=== PATIENT | male | born 1995 | race Caucasian/White ===

== ENCOUNTER 2024-02-09 16:08 | Outpatient (CLI) | payer OTHER, SELFPAY ==
--- NOTE | ~2024-02-09 | XR_ITS ---
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 COMPARISON: None available. FINDINGS: Normal mineralization. No fracture or dislocation. No lytic or blastic lesion. Joint space s are maintained. Olecranon enthesopathy. No erosion or periosteal change. Soft tissues within normal limits. IMPRESSION: No acute osseous finding in the right elbow. Reviewed, dictated and finalized at location K.
== END 2024-02-09 16:09 ==
PROVIDERS: PCP Family Medicine; Visit Provider Family Medicine
DX: M25.521 Pain in right elbow (principal)
CPT/HCPCS: 73080

== ENCOUNTER 2024-07-10 09:56 | Emergency (ER) | payer OTHER, SELFPAY ==
--- NOTE | 2024-07-10 09:59 | ED.HA ---
HPI - Headache General Chief Complaint: Headache Stated Complaint: migraine Time Seen by Provider: 07/10/24 09:57 Source: patient Mode of arrival: ambulatory Limitations: no limitations History of Present Illness HPI Narrative: Steve is a 29-year-old female patient presenting to the clinic today with complaints of migraine headache that started this morning. He reports he did take a rizatriptan 1 hour ago and that did not help with symptoms. Is having some photosensitivity and nausea. No vomiting. Reports the pain is a 4/10 currently and throbbing and it involves this entire head. He denies any visual changes, dizziness, or unsteady gait. Related Data Allergies Allergy/AdvReac Type Severity Reaction Status Date / Time No Known Drug Allergies Allergy Unknown Unknown Verified 07/10/24 10:09 Review of Systems Review of Systems: Pertinent positives per HPI. Patient denies any fever, chills, rash, visual changes, dizziness, cough, shortness of breath, chest pain, palpitations, nausea, vomiting, diarrhea, constipation, abdominal pain, or any urinary issues. FOR[facility]LY [facility] Past Medical History Medical History Lateral epicondylitis of right elbow Right elbow pain IFG (impaired fasting glucose) Chronic GERD Depression Migraine, unspecified, not intractable, without status migrainosus Surgical History Surgical History History of hand surgery History of mandibular surgery Family History Family History Mother Diabetes mellitus Hypertension Social History Social History Social History: caffeine use Smoking status: Current some day smoker Tobacco type: cigars Second hand tobacco smoke exposure: Yes Smoking end date: 07/27/09 Alcohol intake: current Drinks per week: 4 Substance use: never Substance use type: does not use Living arrangements: with family Occupation/Education: occupation 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 There is no relevant family history pertinent to the patient complaint. Exam Narrative: General: Well-developed, well nourished, in no apparent distress Head: Normocephalic, atraumatic Eyes: Pupils equally round and reactive to light bilaterally, EOM intact, sclera and conjunctive clear, no discharge, lids normal Ears: TMs intact and clear, ear canals clear, no drainage, grossly hearing normal. Nose: Nares patent, no discharge, no inflammation, no sinus tenderness. Mouth: Oropharynx without lesions or masses, good dentition, MMM. Tongue midline, even rise and fall of uvula Neck: Supple, trachea midline, no enlargement of anterior or posterior cervical nodes, no thyroid masses or goiter palpable. Cardio: Regular rate and rhythm, s1 and s2 normal, no murmur appreciated. Resp: Clear to auscultation bilaterally anteriorly and posteriorly, no rhonchi, rales, wheezing or rubs Musculoskeletal: No deformity, non-tender to palpation, grossly normal range of motion, muscle strength strong and equal, peripheral pulse strong, no edema, no cyanosis, normal gait and station Neuro: Alert and oriented x4 with normal speech, no focal deficits, cranial nerves I through XII intact, muscle strength 5 out of 5, sensation intact bilaterally Course Course Emergency Course: Portions of this record may have been created with voice recognition software. Level of Care: Express Care Visit Vital Signs Vital signs: Vital Signs Temperature 36.5 C 07/10/24 10:04 Pulse Rate 64 07/10/24 10:04 Respiratory Rate 16 07/10/24 10:04 Blood Pressure 144/87 H 07/10/24 10:04 Pulse Oximetry 98 07/10/24 10:04 Oxygen Delivery Room Air 07/10/24 10:04 Temperature 36.5 C 07/10/24 10:04 Pulse Rate 64 07/10/24 10:04 Respiratory Rate 16 07/10/24 10:04 Blood Pressure 144/87 H 07/10/24 10:04 Pulse Oximetry 98 07/10/24 10:04 Oxygen Delivery Room Air 07/10/24 10:04 Vital signs reviewed MDM - Headache MDM Narrative Medical decision making narrative: At the time of visit patient is resting comfortably on the exam table. Patient appears to be nontoxic. Medications: Toradol 60 mg, Benadryl 50 mg, and Zofran 4 mg ODT given in the clinic today Plan: Patient is neurologically intact. I suspect patient has acute migraine. Took a dose of his rizatriptan and this morning without relief. Toradol, Benadryl, and Zofran was given in the clinic today. Supportive measures were discussed with the patient and they voiced understanding discharge instructions and agrees to treatment plan. Return precautions reviewed Differential Diagnosis Differential diagnosis: Likely migraine, tension headache, subarachnoid hemorrhage, headache, meningitis and sinusitis Discharge Plan Discharge Clinical Impression: Migraine, unspecified, not intractable, without status migrainosus Qualifiers: Migraine type: unspecified Qualified Code(s): G43.909 - Migraine, unspecified, not intractable, without status migrainosus Patient Disposition: Home, Self-Care Condition: Stable Instructions: Antibiotic Form, Migraine Headache (ED) Additional Instructions: Toradol 60 mg IM, Benadryl 50 mg IM, and Zofran 4 mg ODT given in the clinic today Go home and rest in a cool dark place May apply cool compress to the affected area to help alleviate pain Increase fluids and stay well hydrated Continue current medications as prescribed May take Tylenol/Motrin as needed for pain in addition to the rizatriptan Follow-up with your primary care doctor this week if symptoms persist Patient Language: Hungarian Prescriptions: No Action omeprazole 40 mg capsule,delayed release(DR/EC) 40 mg PO DAILY Qty: 90 2RF rizatriptan 10 mg tablet,disintegrating See Rx Instructions PO .COMPLEX Qty: 30 3RF Rx Instructions: take 1 tab at onset of headache; if no relief may repeat 1 tab after at least 2 hrs; max = 2 tabs/24 hr PO Follow-up/Referrals: Jalil Armas MD [Primary Care Provider] - Time of Disposition: 10:22 Quality NIHSS Nursing Documentation ED NIHSS nursing documentation: reviewed/agree
[2024-07-10 10:04] VITALS: BP 144/87; PULSE 64; RESP 16; TEMP 36.5; O2SAT 98
[2024-07-10] MEDS: ONDANSETRON HCL ODT 4 MG TABLET SUBLINGUAL (10:21)
[2024-07-10] MEDS: diphenhydrAMINE HCl INJ 50 MG/ML VIAL IM (10:21)
[2024-07-10] MEDS: KETOROLAC (*BKC) 60 MG/2 ML VIAL IM (10:22)
== END 2024-07-10 10:36 | disposition home or self-care (01) ==
PROVIDERS: Emergency Provider Nurse Practitioner Family; PCP Family Medicine
DX: G43.909 Migraine, unspecified, not intractable, without status migrainosus (principal); Z87.891 Personal history of nicotine dependence; K21.9 Gastro-esophageal reflux disease without esophagitis; R73.01 Impaired fasting glucose
CPT/HCPCS: 96372; 99214; A9270; G0463; J1200; J1885

== ENCOUNTER 2024-12-23 00:47 | Day surgery (SDC) | payer OTHER, SELFPAY ==
[2024-12-14 11:11] VITALS: BMI 38.4
--- NOTE | 2024-12-14 11:20 | PC.NURSE ---
Report to the Outpatient Waiting Room, entrance under the green pavilion located off [facility], at time ___1100am____ on date _12/23/24 . Planned Procedure Time: _100pm .? Time changes happen often and if your time is changed the preop area will call you the afternoon before. - You and your visitor will be asked to self-screen and do not enter if you have any COVID symptoms. Please call surgeon if you need to reschedule. - A mask is optional within the hospital at this time. Patients may have clear liquids (water, carbonated beverages, clear teas, apple juice) until 3 hours prior to surgery with a maximum of 20 ounces. - No food from midnight until time of surgery and no smoking, or chewing tobacco (or any form of nicotine). No chewing gum, candy or mints. ( 1000am) Take only the following medications with a SIP of water on the morning of surgery: None DO NOT STOP ANY OF YOUR OTHER PRESCRIPTION MEDICATIONS PRIOR TO SURGERY EXCEPT THE FOLLOWING Hold all vitamins and supplements for 3 days per anesthesiologist. Medications to discontinue per physician NOne Date to take last dose None Please no make-up, nail burmese, hairspray, perfume, deodorant, or body powder the day of surgery.? No jewelry (including any body piercings) or valuables the day of surgery, leave them at home.? Please take a shower or bath the night before, or the morning of, surgery with an antibacterial soap.? Wear comfortable, loose fitting clothing.? - Jewelry must be removed prior to entering the operating room.? Rings and piercings that are not removed may be cut off. - The hospital will not accept responsibility for valuables.? - Please leave all valuables, including medications, at home the day of surgery. If you are going home after surgery, a licensed route driver salesperson must drive you home.? - NO public transportation without another adult if you receive anesthesia. - We recommend that an adult stay with you for 24 hours following discharge. - We also recommend that you do not drive, make important decision, drink alcoholic beverages, or take any drugs that were not prescribed by your health care provider for at least 24 hours after your discharge time. Follow any additional instructions given to you from your surgeon. Telephone instructions given to ___Patient and asked if any additional questions and then verbalized understanding. Patient advised to call surgeon office or pre surgery nurse liaison [phone] if any additional questions.
[2024-12-23] VITALS (10 sets, daily range): BP systolic 104–140; BP diastolic 51–86; PULSE 45–71; RESP 12–16; TEMP 36.2–36.9; O2SAT 96–100; BMI 36.7
--- OUTSIDE RECORDS SUMMARY | 2024-12-23 00:50 | XMS_ITS | Referral Summary ---
Author Organization [address] Address [address] [place] [id number] Care Team Providers Care Automotive Diagnostic Technician Name Role Phone Jalil Armas MD Primary Care Provider Allergies No known active allergies Medications omeprazole (PriLOSEC) 40 mg capsule 08/22/2021 Active rizatriptan CLOTH COLORS EXAMINER (MAXALT-CLOTH COLORS EXAMINER) 10 mg disintegrating tablet 11/09/2023 Active Active Problems No known active problems Social History Tobacco Use Types Packs/Day Years Used Date Smoking Tobacco: Some Days Cigars Personal Safety Answer Date Recorded Getting School Help Needed Not on file 09/15 Sex and Gender Information Value Date Recorded Sex Assigned at Not on file 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 Gender Identity Not on file Sexual Orientation Not on file Last Filed Vital Signs Vital Sign Reading Time Taken Comments Blood Pressure 140/90 01/09/2024 7:35 PM CDT Pulse 68 01/09/2024 6:57 PM CDT Temperature 36.4 C (97.5 F) 01/09/2024 6:57 PM CDT Respiratory Rate 20 01/09/2024 6:57 PM CDT Oxygen Saturation 98% 01/09/2024 6:57 PM CDT Inhaled Oxygen Concentration - - Weight 127 kg (280 lb) 01/09/2024 6:57 PM CDT Height 185.4 cm (6' 1) 01/09/2024 6:57 PM CDT Body Mass Index 36.94 01/09/2024 6:57 PM CDT Plan of Treatment Not on file Insurance R [facility] Care Teams Automotive Diagnostic Technician Relationship Specialty Start Date End Date Jalil Armas MD [address] [facility] [address] [place] [address] PCP - General Family Medicine 09/08/21
--- OUTSIDE RECORDS SUMMARY | 2024-12-23 00:50 | XMS_ITS | Clinical Summary ---
Author Organization [facility] [address] [place] Address [address] [place] [id number] Care Team Providers Care Hospital Insurance Representative Name Role Phone Jalil Armas MD Primary Care Provider Allergies No known active allergies Medications omeprazole (PriLOSEC) 40 mg capsule 08/22/2021 Active rizatriptan BINGO USHER (MAXALT-BINGO USHER) 10 mg disintegrating tablet 11/09/2023 Active Active Problems No known active problems Surgical History Surgery Date Site/Laterality Comments MANDIBLE SURGERY HAND SURGERY Social History Tobacco Use Types Packs/Day Years Used Date Smoking Tobacco: Some Days Cigars Personal Safety Answer Date Recorded Getting School Help Needed Not on file 09/15 Sex and Gender Information Value Date Recorded Sex Assigned at Not on file 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 Gender Identity Not on file Sexual Orientation Not on file Obstetrics History Last Filed Vital Signs Vital Sign Reading [...] 01/09/2024 6:57 PM CDT Plan of Treatment Health Maintenance Due Date Last Done Comments Depression Screening 1994 Hepatitis C Screening 1994 Varicella Vaccines (1 of 2 - 13+ 2-dose series) 2007 Regular Well Visit/Exam 18-64 2012 Pneumococcal vaccine <65 (1 of 2 - PCV) 2013 Influenza Vaccine (Season Ended) 2025 05/18/20 15 DTaP/Tdap/Td Vaccine (3 - Td or Tdap) 04/06/2025 04/06/2015, 03/27/2015 Hepatitis B Screening Completed 05/28/2015, 015 HPV Vaccines Completed 12/22/2017, 11/24, 06/03/2017, Additional history exists Insurance [facility] H[facility]/PPO Address: [address] [address] Care Teams Hospital Insurance Representative Relationship Specialty Start Date End Date Jalil Armas MD [address] [facility] [address] [place] [address] PCP - General Family Medicine 09/08/21
--- OUTSIDE RECORDS SUMMARY | 2024-12-23 00:50 | XMS_ITS | Continuity of Care Document ---
Author Organization [facility] Address [address] [place] [address] Phone Care Team Providers Care Information Systems Administrator Name Role Phone Points Pati ROCHA Unavailable Unavailable Allergies, Adverse Reactions, Alerts Substance Reaction Status Criticality No Known Allergies Active No Inform ation Medications Medication Instructions Dosage Effective Dates (start - stop) Status Comments omeprazole 10 mg capsule,delayed release take 2 capsule by oral route every day before a meal 20 MG - Active rizatriptan 10 mg tablet take 1 tablet by oral route once, may repeat at 2 hour intervals; do not exceed 30 mg in 24 hours 10 MG - Active Procedures Procedure Date OFFICE/OUTPATIENT VISIT, NEW [place] Ketorolac - Per 15mg THER/PROPH/DIAG INJ, SC/IM Advance Directives Directive Yes / No Effective Date File Name No Information Encounters Encounter Description Practice Location Reason(s) For Visit Diagnoses Date Provider Providers Copied on Encounter OFFICE/OUTPATI ENT VISIT, NEW [facility], [address], [place], [id number], tel:[phone] [facility] migraine (chief complaint) Migraine Abhishek Krueger. [address] [place], [address], [place]. tel:[phone] Referring Provider: Pati Weiss, [address] [place], [address]. tel:[phone] Family History Family Member Type Diagnosis Age At Onset Problem Family history of hypertensi on Problem Family history of Diabetes jose angel morales Payers Payer name Insurance type Covered alliance party ID Coco allen(s) Yext [id number] Social History Type Description Quantity Date Captured Comments Alcohol Use Details No Caffeine Use Details Unknown Tobacco Use Status Current non-smoker Smoking Status Never smoker Non-Smoking Tobacco Use Details : No Details Available : No Details Available Sex Male Vital Signs Date / Time: Height Weight BMI Pulse Rate Blood Pressure Temperature Respiratory Rate Body Surface Area Head Circumference Head Circ. Percentile Wt./Gen. Percentile BMI percentile Pulse Ox Inhaled Ox 10:09 AM 74.00 in 126.008 kg (277.80 lbs) 35.6 7 kg/m eter (2) 58 /min 130/88 mm[Hg] 96.90 F 16 /min 98 % Chief Complaint And Reason For Visit From encounter dated '05/04/2022 09:45'. migraine (chief complaint). Description: Onset: 3hours. The severity of the problem is mild. Pain scale: 5/10. The problem has worsened. The symptoms are constant. Locations affected include entire head. Headache timing includes upon wakening. Symptoms are associated with hx of migraines 3-4 times a mt. Aggravating factors include bright lights and noise. Symptoms are relieved by prescription meds and Rizotriptan. Associated symptoms include nausea, phonophobia and photophobia. Pertinent negatives include blurred vision, fever, loss of consciousness, vision loss left and vision loss right. Reason For Referral Reason For Referral No Information History Of Present Illness Encounter Date Complaint History Of Prese nt Illness migraine Onset: 3hours. T he severity of the problem is mild. Pain scale: 5/10. The problem has worsened. The symptoms are constant. Locations affected include entire head. Headache timing includes upon wakening. Symptoms are associated with hx of migraines 3-4 times a mt. Aggravating factors include bright lights and noise. Symptoms are relieved by prescription meds and Rizotriptan. Associated symptoms include nausea, phonophobia and photophobia. Pertinent negatives include blurred vision, fever, loss of consciousness, vision loss left and vision loss right. Functional Status Date Functional Assessmen t Pain Score 5/10 Instructions Date Instruction Additional Infor christopher Migraine- Toradol 60 mg IM, patient tolerated well- Rest, fluids- RTC if symptoms don't improve or worsen- patient in agreement with plan Related to Migraine Assessments Type Assessment Date assessment Migraine impression 26 yo male here with c/o migraine for past 3 hours. Has history of migraines 3-4 times/month, usually takes rizatriptan with resolution of migraine. Has occasional migraine resistant to medication and requires toradol IM. Denies dizziness, chest pain, vomiting, changes in vision, or balance/ gait. Tolerating PO. Reports this migraine is exactly like his normal ones. Currently has PCP treating him for these migraines Mental Status Date Cognitive Assessment Orientation - [place] ed to time, place, person, situation. Patient Care Teams Name Effective Dates (start - stop) Status Members No Information
--- OUTSIDE RECORDS SUMMARY | 2024-12-23 00:50 | XMS_ITS | Patient Health Record ---
Author Organization [facility] Address [address] [facility] [address] [place] [address] Care Team Providers Care Molder Setter Name Role Phone Jalil Armas MD Primary Care Provider UnavailBerny Wolf Unavailable [phone] Raul Marie PA-C Unavailable Unavailable Pb Berry Unavailable [phone] Allergies No Known Allergies Results Component Value Reference Range Notes UDT Reviewed date:09/26/2024 04:55:30 PM Interpretation: Performing Lab: Notes/Report: THC n 0 - 50 ng/ml Cocaine n 0 - 300 ng/ml Amphetamine n 0 - 1000 ng/ml Buprenorphine (BUP) n 0 - 10 ng/ml Secobarbital (Bar) n 0 - 300 ng/ml Oxazepam (BZO) n 0 - 300 ng/ml 9-mvyqplpvlr-9,0-bzndjgbb-8,3-diphenylpyrrolidine (ROWAN P) n 0 - 300 ng/ml Methylenedioxymethamphetamine (MDMA) n 0 - 500 ng/ml Morphine (MOP 300/[id number]) n 0 - 300 ng/ml Methadone (MTD) n 0 - 300 ng/ml Phencyclidine (PCP) n 0 - 25 ng/ml Nortriptyline (TCA) n 0 - 1000 ng/ml Oxycodone n 0 - 300 ng/ml x n 0 - 300 ng/ml Reason For Referral No Information Medications Medication SIG (Take, Route, Frequency, Duration) Notes Start Date End Date Status Omeprazole 40 MG Oral 03/21/2019 Ac tive Escitalopram Oxalate 10 MG Oral 03/21/2019 Not-Taking Social History Tobacco Use: Social History Observation Description Date Details (start date - stop date) Unknown Sex Assigned At : Social History Observation Description Sex Assigned At Male Tobacco Control (Standard) Question Answer Notes Tobacco use: Uses tobacco in other forms AUDIT-C (Standard) Question Answer Notes Points 4 Interpretation Positive Did you have a drink contain ing alcohol in the past year? Yes How often did you have six o r more drinks on one occasion in the past year? Less than monthly (1 point) How many drinks did you have on a typical day when you were drinking in the past year? 3 or 4 drinks (1 point) How often did you have a dri nk containing alcohol in the past year? 2 to 4 times a month (2 points) Problems Problem Type SNOMED Code ICD Code Onset Dates Problem Status W/U Status Risk Notes Problem Attention deficit hyperactivity disorder, predominantly inattentive type (disorder) (59979817) Attention and concentration deficit (R41.840) Active confirmed Problem Attention deficit hyperactivity disorder (822048966) Attention deficit hyperactivity disorder (ADHD), combined type (F90.2) Active confirmed Vital Signs Heart Rate 93 /min 10/06/2024 Height-cm 182.88 cm 10/06/2024 Blood pressure diastolic 92 mm Hg 10/06/2024 Weight-kg 133.81 kg 10/06/2024 Height 72.00 in 10/06/2024 Blood pressure systolic 147 mm Hg 10/06/2024 Weight 295.0 lbs 10/06/2024 BMI 40 kg/m2 10/06/2024 Encounters Encounter Location Date Provider Diagnosis [employer] [facility] [address] [facility] [address] [place] [address] 09/08/2024 Berny Kenny Attention and concentration deficit R41.840 [facility] [place] [address] [facility] [address] [place] [address] 09/26/2024 Pb Berry Lack of concentratio n R41.840 [facility] [place] [address] [facility] [address] [place] [address] 10/06/2024 Berny Kenny Attention deficit hyperactivity disorder (ADHD), combined type F90.2 ; Encounter for screening for cardiovascular disorders Z13.6 ; Dietary counseling and surveillance Z71.3 and Encounter for screening for depression Z13.31 [place] [address] [place] [address] 10/14/2024 [facility] [address] [place] [place] [address] 10/06/2024 [place] [address] [place] [address] 10/13/2024 [facility] [address] [place] [address] 10/13/2024 [facility] [address] [place] [address] 10/18/2024 [facility] [address] [facility] [address] [place] [address] 10/26/2024 [facility] [address] [facility] [address] [place] [address] 10/28/2024 [place] [address] [facility] [address] [place] [address] 10/28/2024 [facility], [place] [address] [facility] [address] [place] [address] 11/10/2024 [facility] [address] [facility] [address] [place] [address] 11/18/2024 Berny Kenny Assessments Encounter Date Diagnosis (ICD Code) Assessment Notes Treatment Notes Treatment Clinical Notes Section Notes 09/08/2024 Attention and concentration deficit (ICD-10 - R41.840) 10/06/2024 Attention deficit hyperactivity disorder (ADHD), combined type (ICD-10 - F90.2) Electronic Prior Authorization was requested for Methylphenidate HCl ER (OSM) 36 MG Tablet Extended Release. Provider can order medication once approval received. 09/26/2024 Lack of concentration (ICD-10 - R41.840) The cognitive assessment results for the 29-year-old male indicate the following carr points: ADHD Screening (ASRS Questionnaire) The ASRS questionnaire is indicative of ADHD. Part A (core ADHD symptoms): 5 (threshold >3, meaning ADHD symptoms are present). Part B (supporting symptoms): 10. Cognitive Performance The cognitive assessment evaluates various executive functions: Planning (Spatial Planning) Score: 34 (above the threshold of >12). 87th percentile, indicating strong planning abilities. Spatial Working Memory (Token Search) Score: 6.33 (above the threshold of >4.75). 64th percentile, suggesting an ksqlpgn-kh-pybsmo working memory. Attention (Feature Match) Errors: 1 (within the typical range, 38th percentile). Reaction time: 2708ms (slower than typical, 37th percentile). Impulsivity: Neither faster nor less accurate. Response Inhibition (Double Trouble) Errors: 2 (within the typical range, 30th percentile). Interference ratio for errors: 2 (within range, 38th percentile). Reaction time interference: 1.23 (within range, 56th percentile). Overall reaction time: 1876ms (slower than expected, 25th percentile). Reaction time variability: 448ms (within range, 15th percentile). Sustained Attention to Response Task (SART) Commission errors: 2 (low, 4th percentile). Omission errors: 1 (within range, 15th percentile). Reaction time variability: 81ms (low, 10th percentile). Slowing after errors: 2ms (within range, 46th percentile). [employer] Strong planning abilities (87th percentile). Average working memory (64th percentile). Slightly slower reaction times in attention and response inhibition tasks. Minimal impulsivity errors, suggesting good self-regulation. Some variability in attention performance, but not severe deficits. Conclusion The ASRS results indicate ADHD is likely, but the cognitive markers show relatively intact executive function. The slower reaction times may contribute to attention difficulties, and mild variability in attention suggests possible distractibility. However, strong planning and working memory scores suggest compensatory strengths. 10/06/2024 Encounter for screening for cardiovascular disorders (ICD-10 - Z13.6) 10/06/2024 Dietary counseling and surveillance (ICD-10 - Z71.3) 10/06/2024 Encounter for screening for depression (ICD-10 - Z13.31) 09/08/2024 Other Learning About Depression Screening material was printed 1. ADHD (Attention Deficit Hyperactivity Disorder): - Patient reports a history of ADHD in childhood, treated with Concerta. He stopped medication when joining the . - Currently experiences difficulty focusing, impulsivity, and restlessness, affecting work and personal life. Plan: - Schedule the patient for an ADHD test. - Schedule a follow-up appointment to discuss medication options after test results are available. - Consider stimulant medications (e.g., Concerta, Adderall, Vivient) and non-stimulant medications (e.g., atomoxetine, Qelbree). 2. Sleep disturbance (snoring): - Patient reports snoring, affecting his 's sleep quality. - Currently participating in a sleep challenge. Plan: - Encourage the patient to continue with the sleep challenge. - Monitor for any improvements in snoring. - Consider referral to a sleep specialist if the issue persists. 3. Caffeine intake: - Patient consumes 4-5 cups of coffee daily, potentially contributing to ADHD symptoms. Plan: - Recommend reducing caffeine intake and replacing some coffee consumption with water. - Monitor for any changes in ADHD symptoms. 4. Alcohol use (binge drinking): - Patient reports occasional binge drinking during work trips. Plan: - Encourage the patient to monitor his alcohol consumption. - Consider strategies to reduce binge drinking during work trips. 5. Anxiety (history): - Patient reports a history of anxiety related to transitioning out of the . - No current anxiety symptoms. Plan: - Continue to monitor for any signs of anxiety during follow-up appointments. 6. Depression (history): - Patient denies any history of depression, suicidal thoughts, or suicide attempts. Plan: - Continue to monitor for any signs of depression during follow-up appointments. 7. Family history of ADHD: - Patient denies any family history of ADHD. Plan: - No specific intervention needed at this time. 10/06/2024 Other BOXED WARNINGCaution with history of drug dependence or alcoholism. Marked tolerance and psychological dependence may result from chronic abusive use. Sharad psychotic episodes may occur, especially with parenteral abuse. Careful supervision required for withdrawal from abusive use to avoid severe depression. Withdrawal following chronic use may unmask symptoms of underlying disorder that may require follow-up 1. Attention-Deficit /Hyperactivity Disorder (ADHD): - Patient underwent ADHD testing on September 26, with cognitive assessment results showing: * Strong planning abilities (87th percentile) * Average to strong spatial working memory (64th percentile) * Slightly slower reaction times in attention feature match (37th percentile) and response inhibition (25th percentile) * Sustained attention to response task showed low reaction time and commission errors - Patient reports increased problems at work with attention, concentration, and distractibility - History of positive response to Concerta (methylphenidate ER) in the past - No overt severe ADHD symptoms, but patient has good compensation skills - Sleep appears normal based on recent sleep study - No reported anxiety or depression Plan: - Start methylphenidate ER 20 mg PO every morning - Patient informed about potential side effects: decreased appetite, anxiety, irritability, anger, increased heart rate, or blood pressure - Advised to take medication in the morning to avoid sleep interference - Prescription to be sent to the pharmacy Follow-up: - Schedule a follow-up appointment in one month Plan Of Treatment Future Test Test Name Order Date ADHD Testing 09/08/2024 Insurance Providers Payer Name Payer Address Payer Phone Subscriber Number Group Number Insured Name Patient Relationship to Insured Coverage Start Date Coverage End Date [facility] [address] [address] [place] [address] [id number] DHAVAL MOREIRA Self - patient is the insured Medical (General) History Medical History History ICD Code Problems: Generalized anxiety disorder Mild recurrent major depression , abdominal aortic aneurysm: No atrial fibrillation: No chronic fatigue syndrome: No essential tremor: No hyperlipidemia: No hypertension: No Parkinson's disease: No restless leg syndrome: No stroke: No subdural hematoma: No type 1 diabetes mellitus: No type 2 diabetes mellitus: No vitamin B12 deficiency: No vitamin D deficiency: No Surgical History Surgery Date(Month/Year) Operation for bone injury of phalanges o f hand ([id number]) Operation on mandible ([id number])
--- NOTE | 2024-12-23 11:27 | WPDHPUPDATE1 ---
History and Physical Update Update Date/Time: 12/23/24 11:27 History and Physical has been reviewed, including an updated exam of the patient. There are NO changes in the patient's condition. Risks, benefits, and alternatives have been discussed and questions answered. Patient agrees to proceed with procedure.
[2024-12-23] MEDS: ACETAMINOPHEN 500 MG TABLET 1000 MG PO (11:30)
--- NOTE | 2024-12-23 12:10 | WPDANESEPPF ---
Anes - Initial Pre Proc Eval Procedure: Operation Date: 12/23/24 13:00 Proposed Procedures p Bilateral Inferior Turbinate Reduction with Outfracture - Rashad Reina MD s Endoscopic Assisted Septoplasty - Rashad Reina MD Date/Time: 12/23/24 12:10 Surgeon: Rashad Reina MD Pre Op Diagnosis: chronic sinusitis, PEDRO PABLO, deviated septum, Patient Data Age: 29 Gender: M Height: 1.85 m Weight: 126.4 kg Last Vital Signs Temp 36.9 C 12/23/24 11:52 Pulse 58 L 12/23/24 11:52 BP 140/79 12/23/24 11:52 Pulse Ox 99 12/23/24 11:52 O2 Del Method Room Air 12/23/24 11:52 Allergies Allergy/AdvReac Type Severity Reaction Status Date / Time No Known Drug Allergies Allergy Unknown Unknown Verified 12/23/24 11:50 Home Medications ?Medication ?Instructions ?Recorded ?Confirmed ?Type rizatriptan 10 mg disintegrating See Rx Instructions PO .COMPLEX 11/09/23 12/15/24 Rx tablet #30 tabs omeprazole 40 mg capsule,delayed 40 mg PO DAILY #90 caps 08/08/24 12/15/24 Rx release dextroamphetamine-amphetamine ER 15 mg PO QAM #30 caps 11/28/24 12/15/24 Rx 15 mg 24hr capsule,extend release (Adderall XR) fluticasone propionate 50 2 spray intranasal Q12H 12/01/24 12/15/24 History mcg/actuation nasal spray,suspension fluticasone propionate 50 2 spray intranasal BID #16 mL 12/01/24 12/15/24 Rx mcg/actuation nasal spray,suspension (Flonase Allergy Relief) Patient hx anesthesia problems: none Family hx anesthesia problems: none Results Review: All pre-operative results and documents have been reviewed as part of the pre-operative evaluation. [facility] Past Medical History Medical History (Updated 12/23/24 @ 08:12 by Navin Hou DO) PEDRO PABLO (obstructive sleep apnea) Lateral epicondylitis of right elbow Right elbow pain IFG (impaired fasting glucose) Chronic GERD Depression Migraine, unspecified, not intractable, without status migrainosus Surgical History Surgical History History of hand surgery History of mandibular surgery Family History Family History Mother Diabetes mellitus Hypertension Social History Social History Social History: caffeine use Smoking status: Current some day smoker Tobacco type: cigars Second hand tobacco smoke exposure: Yes Smoking end date: 07/27/09 Alcohol intake: current Drinks per week: 3 Substance use: never Substance use type: does not use Living arrangements: with family Additional living arrangements comments: Occupation/Education: occupation 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- [email or web address] Gender identity (if verbalized by the patient): Male Sexual Orientation (if Verbalized by the Patient): Straight or Heterosexual Spiritual care concerns: No Anes - Eval Final PreProcedure Day of Procedure 12/23/24 12:10 Patient weight: obese Heart: regular rate and rhythm Lungs: clear to auscultation Airway: Mallampati scale class III Neurological: alert and oriented Last oral intake: >/= 8 hours ASA classification: III Emergent: no Anesthetic plan: proceed Anesthesia type and monitoring: general ETT and standard monitoring Results Review: All pre-operative results and documents have been reviewed as part of the pre-operative evaluation. Informed Consent: The patient's anesthetic plan and its attendant risks and benefits were discussed with the patient/family/POA. Questions were solicited and answers provided to the satisfaction of the patient/family/POA.
[2024-12-23] MEDS: LACTATED RINGERS 1,000 ML 30 ML IV CONT ×2 (12:37→13:59)
[2024-12-23] MEDS: ceFAZolin 3 GM/D5W 100 ML 100 ML IVPB (13:08)
[2024-12-23] MEDS: OXYMETAZOLINE HCL 0.05% NAS 15 ML BTL (*BKC) 1 SPRAY XX (13:30)
--- NOTE | 2024-12-23 14:10 | W.PM.PROC2 ---
Procedure Note - Detailed Date of Procedure 12/23/24 Pre-op Diagnosis chronic sinusitis, PEDRO PABLO, deviated septum, Post-op Diagnosis Same Procedure Performed Endoscopic assisted septoplasty inferior turbinate reduction with outfracture bilaterally Surgeon Rashad Reina MD Anesthesia General Indications See above Findings Severely deviated left nasal septum very large turbinates no complications Description of Procedure Patient identified consent verified the preop holding area. Patient brought to the operating. Time-out performed. General anesthesia induced endotracheal tube secured. Patient prepped draped position procedure confirmed 2nd time-out performed. Total 15 cc 1% lidocaine with 1 100,000 parts epinephrine injected into the bilateral nasal septum and inferior turbinates anteriorly. [place] incision made left side the entire procedure was done with a 0 degree endoscope. [place] incision made left-sided sparing a good L strut left nasal septal flap elevated a 7 German suction some tears over spur no concomitant tear on the right side cartilage crossover using an osteotome right nasal septal flap elevated L strut was kept intact deviated septum removed [place] forceps Aric forceps and osteotome. Septum then washed out Hitesh incision closed with 5 interrupted 5 0 fast gut sutures. Turbinates stab anteriorly using a 15 blade and reduced in the submucosal plane using a 2.5 mm Aguila microdebrider. They were then outfractured. Pattison tips were then cauterized with Bovie suction electrocautery setting of 15. Bilateral nasal passages suctioned out no concomitant perforations L strut kept intact. Farooq splints placed sutured anteriorly using a 3-0 mattress nylon suture. I performed all dictated portions of procedure no complication blood loss 25 cc. Care the patient given back to Anesthesiology. Patient taken to PACU. Estimated Blood Loss 25 Drains No Packing No Pathology None sent Complications No immediate complications Condition Stable Disposition PACU [facility] Billing Surgery - Charge Forward: Surgery Billing
[2024-12-23] MEDS: oxyCODONE HCL (*CRX) 5 MG TAB IR PO (15:43)
== END 2024-12-23 16:30 | disposition home or self-care (01) ==
PROVIDERS: PCP Family Medicine; Visit Provider Otolaryngology
PROC: (CPT 30520; principal; 2024-12-23 13:00)
PROC: (CPT 30520; 2024-12-23 13:00)
DX: J32.9 Chronic sinusitis, unspecified (principal); J34.2 Deviated nasal septum; J34.3 Hypertrophy of nasal turbinates; J34.89 Other specified disorders of nose and nasal sinuses; G89.18 Other acute postprocedural pain; K21.9 Gastro-esophageal reflux disease without esophagitis; G47.33 Obstructive sleep apnea (adult) (pediatric); F32.A Depression, unspecified; R73.01 Impaired fasting glucose; F17.290 Nicotine dependence, other tobacco product, uncomplicated; E66.9 Obesity, unspecified; Z68.30 Body mass index [BMI] 30.0-30.9, adult; Z98.890 Other specified postprocedural states
CPT/HCPCS: 30520; 30140; A9270; J0690; J1100; J1171; J2003; J2250; J2405; J2704; J3010; J7120

== ENCOUNTER 2025-01-25 07:38 | Outpatient (CLI) | payer OTHER, SELFPAY ==
--- NOTE | ~2025-01-25 | NM_ITS ---
EXAMINATION: NM_HEPATWP_NM DATE: 01/25/2025 11:58 INDICATION: Right upper quadrant abdominal pain COMPARISON: None. TECHNIQUE: 5 mCi Tc-99m mebrofenin (Choletec) was administered intravenously. Scintigraphic images o f the abdomen were obtained for one hour. 2.6 mcg sincalide (Kinevac) was administered by slow intrav enous infusion, and imaging was continued for 30 minutes. Gallbladder ejection fraction was calculate d by the technologist. FINDINGS: There is normal clearance of radiotracer from the blood pool. There is homogeneous tracer uptake by t he liver. Activity progresses to the gallbladder and bowel. The gallbladder ejection fraction (GBEF) is 17% (normal 10-90%, but most patient with gallbladder dysfunction have GBEF < 35% which does over lap with the normal range). IMPRESSION: 1. Gallbladder ejection fraction is at the lower limits of normal. This could be normal but is also within the range of overlap with gallbladder dysfunction or chronic cholecystitis in the appropriate clinical setting. Reviewed, dictated and finalized at location A.
--- OUTSIDE RECORDS SUMMARY | 2025-01-25 07:41 | XMS_ITS | Patient Health Record ---
Author Organization [facility] [employer] [facility] Address [address] [facility] [address] [place] [address] Care Team Providers Care Wood Treating Inspector Name Role Phone Jalil Armas MD Primary Care Provider UnavailBerny Wolf Unavailable [phone] Raul Marie PA-C Unavailable Unavailable Pb Berry Unavailable [phone] Allergies No Known Allergies Results Component Value Reference Range Notes UDT Reviewed date:09/26/2024 04:55:30 PM Interpretation: Performing Lab: Notes/Report: THC n 0 - 50 ng/ml Cocaine n 0 - 300 ng/ml Amphetamine n 0 - 1000 ng/ml Buprenorphine (BUP) n 0 - 10 ng/ml Secobarbital (Bar) n 0 - 300 ng/ml Oxazepam (BZO) n 0 - 300 ng/ml 2-bjgumbjfaq-0,0-gblqylec-6,3-diphenylpyrrolidine (ROWAN P) n 0 - 300 ng/ml Methylenedioxymethamphetamine (MDMA) n 0 - 500 ng/ml Morphine (MOP 300/[id number]) n 0 - 300 ng/ml Methadone (MTD) [...] deficit hyperactivity disorder, predominantly inattentive type (disorder) (64921560) Attention and concentration deficit (R41.840) Active confirmed Problem Attention defici t hyperactivity disorder (ADHD), combined type (F90.2) Active confirmed Vital Signs Heart Rate 93 /min 10/06/2024 Height-cm 182.88 cm 10/06/2024 Blood pressure diastolic 92 mm Hg 10/06/2024 Weight-kg 133.81 kg 10/06/2024 Height 72.00 in 10/06/2024 Blood pressure systolic 147 mm Hg 10/06/2024 Weight 295.0 lbs 10/06/2024 BMI 40 kg/m2 10/06/2024 Encounters Encounter Location Date Provider Diagnosis [facility] [address] [facility] [address] [facility] [address] [place] [address] 09/08/2024 Berny Kenny Attention and concentration deficit R41.840 [facility] [address] [facility] [address] [facility] [address] [place] [address] 09/26/2024 Pb Berry Lack of concentratio n R41.840 [employer] [address] [facility] [address] [facility] [address] [place] [address] 10/06/2024 Berny Kenny Attention deficit hyperactivity disorder (ADHD), combined type F90.2 ; Encounter for screening for cardiovascular disorders Z13.6 ; Dietary counseling and surveillance Z71.3 and Encounter for screening for depression Z13.31 [facility] [address] [place] [address] 10/14/2024 [facility], [facility] [address] [place] [address] 10/06/2024 [facility], [facility] [address] [place] [address] 10/13/2024 [facility], [facility] [address] [facility] [address] [place] [address] 10/13/2024 [facility], [facility] [address] [place] [address] 10/18/2024 [facility], [facility] [address] [facility] [address] [place] [address] 10/26/2024 [facility], [place] [address] [place] [address] 10/28/2024 [facility], [facility] [address] [facility] [address] [place] [address] 10/28/2024 [facility], [place] [address] [facility] [address] [place] [address] 11/10/2024 [facility], [facility] [address] [facility] [address] [place] [address] 11/18/2024 Berny Kenny Assessments Encounter Date Diagnosis (ICD Code) Assessment Notes Treatment Notes Treatment Clinical Notes Section Notes 09/08/2024 Attention and concentration deficit (ICD-10 - R41.840) 09/26/2024 Lack of concentration (ICD-10 - R41.840) [...] threshold of >4.75). 64th percentile, suggesting an lclonwe-nw-wuejyj working memory. Attention (Feature Match) Errors: 1 [...] working memory scores suggest compensatory strengths. 10/06/2024 Attention deficit hyperactivity disorder (ADHD), combined type (ICD-10 - F90.2) Electronic Prior Authorization was requested for Methylphenidate HCl ER (OSM) 36 MG Tablet Extended Release. Provider can order medication once approval received. 10/06/2024 Encounter for screening for cardiovascular disorders [...] Insured Coverage Start Date Coverage End Date [facility] [address] [address] [place] [address] [phone] [id number] DHAVAL MOREIRA Self - patient is the [...] bone injury of phalanges o f hand ([id number]) Operation on mandible ([id number])
--- OUTSIDE RECORDS SUMMARY | 2025-01-25 07:41 | XMS_ITS | Clinical Summary ---
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
--- OUTSIDE RECORDS SUMMARY | 2025-01-25 07:41 | XMS_ITS | Continuity of Care Document ---
Author Organization [facility] Address [address] [place] [address] Phone Care Team Providers Care Vice President Residential Solar Sales Name Role Phone Points Pati ROCHA Unavailable [...] Copied on Encounter OFFICE/OUTPATI ENT VISIT, NEW [facility], [address] [place], [place], [id number], tel:[phone] [facility] migraine (chief complaint) Migraine Abhishek Krueger. [address] [place], [address], [place]. tel:[phone] Referring Provider: Pati Weiss, [address] [place], [address]. tel:[phone] Family History Family Member Type Diagnosis Age At Onset Problem Family history of hypertensi on Problem Family history of Diabetes jose angel morales Payers Payer name Insurance type Covered constitution party ID Coco allen(s) ScriptRx [id number] Social History Type Description Quantity Date Captured [...] Mental Status Date Cognitive Assessment Orientation - [place] ed to time, place, person, situation. Patient Care Teams Name Effective Dates (start - stop) Status Members No Information
--- OUTSIDE RECORDS SUMMARY | 2025-01-25 07:41 | XMS_ITS | Referral Summary ---
Author Organization [address] Address [address] [place] [address] Care Team Providers Care Community Relations Manager Name Role Phone Jalil Armas MD Primary Care Provider Allergies No known active allergies Medications omeprazole (PriLOSEC) 40 mg capsule 08/22/2021 Active rizatriptan PROGRAMMING EQUIPMENT OPERATOR (MAXALT-PROGRAMMING EQUIPMENT OPERATOR) 10 mg disintegrating tablet 11/09/2023 Active Active Problems No known active problems Social History Tobacco Use Types Packs/Day Years Used Date Smoking Tobacco: Some Days Cigars Personal Safety Answer Date Recorded Getting School Help Needed Not on file 09/15 Sex and Gender Information Value Date Recorded Sex Assigned at Not on file 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
== END 2025-01-25 07:39 | disposition home or self-care (01) ==
PROVIDERS: PCP Physician Assistant; Visit Provider Physician Assistant
DX: R10.11 Right upper quadrant pain (principal)
CPT/HCPCS: 78227; A9537; J2805

== ENCOUNTER 2025-03-14 00:45 | Day surgery (SDC) | payer OTHER, SELFPAY ==
[2025-03-02 09:13] VITALS: BMI 37.0
--- OUTSIDE RECORDS SUMMARY | 2025-03-14 00:48 | XMS_ITS | Clinical Summary ---
Author Organization [facility] Address [address] [place] [address] Care Team Providers Care Mechanical Maintenance Name Role Phone Jalil Armas MD Primary Care Provider [phone] Allergies No known active allergies Medications ondansetron (ZOFRAN-ODT) 4 MG disintegrating tablet Take 1 tablet (4 mg total) by mouth every 8 (eight) hours as needed for Nausea. 20 tablet 5 Active HYDROcodone-acetami nophen (NORCO) 5-325 MG tabletIndications:A cute Pain < 3 Day Supply Take 1 tablet by mouth every 6 (six) hours as needed for Pain. Indications : Acute Pain < 3 Day Supply 12 tablet 5 Active Social History Tobacco Use Types Packs/Day Years Used Date Smoking Tobacco: Some Days Cigars Smokeless Tobacco: Never Comments:Smokes a few cigars a month Alcohol Use Standard Drinks/Week Comments Yes 3.3 (1 standard drink = 0.6 oz p ure alcohol) 1 x/wk 2 beers at a time Sex and Gender Information Value Date Recorded Sex Assigned at Not on file Legal Sex Male 8:56 AM CDT Gender Identity Not on file Sexual Orientation Not on file Last Filed Vital Signs Vital Sign Reading Time Taken Comments Blood Pressure 125/76 12/08/2024 11:44 AM CDT Pulse 79 12/08/2024 11:44 AM CDT Temperature 37.3 C (99.1 F) 12/08/2024 11:44 AM CDT Respiratory Rate 18 12/08/2024 11:4 4 AM CDT Oxygen Saturation 99% 12/08/2024 11: 44 AM CDT Inhaled Oxygen Concentration - - Weight 128.6 kg (283 lb 8.2 oz) 12/08/2024 9:01 AM CDT Height 185.4 cm (6' 1) 12/08/2024 9:01 AM CDT Body Mass Index 37.4 12/08/2024 9:01 AM CDT Plan of Treatment Health Maintenance Due Date Last Done Comments Annual Physical 1997 Hepatitis C 2012 Pneumococcal Vaccine: Pediatrics (0 to 5 Years) and At-Risk Patients (6 to 49 Years) (1 of 2 - PCV) 2013 Hepatitis B Vaccines (3 of 3 - 19+ 3-dose series) 10/05/2015 05/28/2015, 04/06/2015 COVID-19 Vaccine (2023- season) 2024 DTaP, Tdap and Td Vaccines (3 - Td or Tdap) 04/06/2025 04/06/2015, 03/27/2015 Meningococcal Vaccine Aged Out 04/06/2015 No meggan celena eligible based on patient's age to complete this topic HPV Vaccines Completed 12/22/2017, 11/24, 06/03/2017, Additional history exists Meningococcal B Vaccine Aged Out No l onger eligible based on patient's age to complete this topic RSV Immunizations Under 20 Months Aged Out No longer eligible based on patient's age to complete this topic Insurance [facility] Care Teams Mechanical Maintenance Relationship Specialty Start Date End Date Jalil Armas MD [address] [place] [address] PCP - General FAMILY PRACTICE 12/08/24
--- OUTSIDE RECORDS SUMMARY | 2025-03-14 00:48 | XMS_ITS | Continuity of Care Document ---
Author Organization [facility] Address [address] [place] [address] Phone Care Team Providers Care Aegis Operations Specialist Name Role Phone Points Pati ROCHA Unavailable [...] Copied on Encounter OFFICE/OUTPATI ENT VISIT, NEW [facility], [address] [place], [place], [id number], tel:[phone] [facility] migraine (chief complaint) Migraine Abhishek Krueger. [address] [place], [address], [place]. tel:[phone] Referring Provider: Pati Weiss, [address] [place], [address]. tel:[phone] Family History Family Member Type Diagnosis Age At Onset Problem Family history of hypertensi on Problem Family history of Diabetes jose angel morales Payers Payer name Insurance type Covered democrat ID Coco allen(s) [employer]me [id number] Social History Type Description Quantity Date Captured [...] Mental Status Date Cognitive Assessment Orientation - [place] ed to time, place, person, situation. Patient Care Teams Name Effective Dates (start - stop) Status Members No Information
--- OUTSIDE RECORDS SUMMARY | 2025-03-14 00:48 | XMS_ITS | Patient Health Record ---
Author Organization [facility] American Board of Addiction Medicine (ABAM) [facility] Address [address] [facility] [address] [place] [address] Care Team Providers Care Cloth Worker Name Role Phone Jalil Armas MD Primary Care Provider UnavailBerny Wolf Unavailable [phone] Raul Marie PA-C Unavailable Unavailable Pb Berry Unavailable [phone] Allergies No Known Allergies Results Component Value Reference Range Notes UDT Reviewed date:09/26/2024 04:55:30 PM Interpretation: Performing Lab: Notes/Report: THC n 0 - 50 ng/ml Cocaine n 0 - 300 ng/ml Amphetamine n 0 - 1000 ng/ml Buprenorphine (BUP) n 0 - 10 ng/ml Secobarbital (Bar) n 0 - 300 ng/ml Oxazepam (BZO) n 0 - 300 ng/ml 2-niizjimhkp-7,3-yqpzwtxl-8,3-diphenylpyrrolidine (ROWAN P) n 0 - 300 ng/ml Methylenedioxymethamphetamine (MDMA) n 0 - 500 ng/ml Morphine (MOP 300/QBN1231) n 0 - 300 ng/ml Methadone (MTD) n 0 - 300 ng/ml Phencyclidine (PCP) n 0 - 25 ng/ml Nortriptyline (TCA) n 0 - 1000 ng/ml Oxycodone n 0 - 300 ng/ml x n 0 - 300 ng/ml Reason For Referral No Information Medications Medication SIG (Take, Route, Frequency, Duration) Notes Start Date End Date Status Omeprazole 40 MG Capsule Delayed Release Oral 03/21/2019 Active Escitalopram Oxalate 10 MG Tablet Oral 03/21/2019 Not-Taking Social History Tobacco Use: Social History Observation Description Date Details (start date - stop date) Unknown Sex Assigned At : Social History Observation Description Sex Assigned At Male Social History Miscellaneous: Social Info Question Answer Notes Safety issues: Are there any firearms in the house? Ye s Social History Social Info Question Answer Notes Household: Marital Status: Number of Adults in household: 2 Number of Children in Household: 1 Level of Education: Finished College Drug/Alcohol: Social Info Question Answer Notes Drugs Have you used drugs other than those for medical reasons in the past 12 months? No AUDIT-C (Standard) Points 4 Interpretation Positive Did you have a drink contain ing alcohol in the past year? Yes How often did you have six or more drinks on one occasion in the past year? Less than monthly (1 point) How many drinks did you have on a typical day when you were drinking in the past year? 3 or 4 drinks (1 point) How often did you have a drink containing alcohol in the past year? 2 to 4 times a month (2 points) Tobacco Use: Social Info Question Answer Notes Tobacco Control (Standard) Tobacco use: Uses tobacco in other forms Additional Details Category Social Info Options Details Miscellaneous: Occupation: Project manag er Migrated Social History Migrated Social History Alcohol Intake: Occasional 05/29/2020,Tobacco Years: Former smoker 05/29/2020,Smoking Status: 1 05/29/2020 Problems Problem Type SNOMED Code ICD Code Onset Dates Problem Status W/U Status Risk Notes Problem Attention and concentration deficit (R41.840) Active confirmed Problem Attention deficit hyperactivity disorder (285548991) Attention deficit hyperactivity disorder (ADHD), combined type (F90.2) Active confirmed Vital Signs Heart Rate 93 /min 10/06/2024 Height-cm 182.88 cm 10/06/2024 Blood pressure diastolic 92 mm Hg 10/06/2024 Weight-kg 133.81 kg 10/06/2024 Height 72.00 in 10/06/2024 Blood pressure systolic 147 mm Hg 10/06/2024 Weight 295.0 lbs 10/06/2024 BMI 40 kg/m2 10/06/2024 Encounters Encounter Location Date Provider Diagnosis [facility] [address] [address] 09/08/2024 Berny Kenny Attention and concentration deficit R41.840 [place] [address] [place] [address] 09/26/2024 Pb Berry Lack of concentratio n R41.840 [place] [address] [place] [address] 10/06/2024 Berny Kenny Attention deficit hyperactivity disorder (ADHD), combined type F90.2 ; Encounter for screening for cardiovascular disorders Z13.6 ; Dietary counseling and surveillance Z71.3 and Encounter for screening for depression Z13.31 [place] [address] [place] [address] 10/14/2024 Pb [facility], [facility] [address] [place] [address] [facility] [place] [address] [place] [address] 10/[facility] [place] [address] [place] [address] 10/13/2024 Pb [facility], [place] [address] [place] [address] 10/18/2024 Berny Kenny [facility], [place] [address] [place] [address] [facility], [place] [address] [place] [address] 10/28/2024 Berny Kenny [facility], [place] [address] [place] [address] 10/28/2024 Berny Kenny [facility], [place] [address] [place] [address] 11/10/2024 Berny Kenny [facility], [place] [address] [place] [address] 11/18/2024 Berny Kenny Assessments Encounter Date Diagnosis [...] threshold of >4.75). 64th percentile, suggesting an bypjakv-yv-bgekcf working memory. Attention (Feature Match) Errors: 1 [...] Insured Coverage Start Date Coverage End Date [address] [address] [place] [address] [phone] [id number] LILLIE DHAVAL Self - patient is the insured Medical [...] bone injury of phalanges o f hand ([id number]) Operation on mandible ([id number])
--- OUTSIDE RECORDS SUMMARY | 2025-03-14 00:48 | XMS_ITS | Clinical Summary ---
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
--- NOTE | 2025-03-14 12:05 | WPDANESEPPF ---
Anes - Initial Pre Proc Eval Procedure: Operation Date: 03/14/25 13:15 Proposed Procedures p Esophagogastroduodenoscopy - Vitor Fish MD Date/Time: 03/14/25 12:05 Surgeon: Vitor Fish MD Pre Op Diagnosis: Right upper quadrant pain, GERD Patient Data Age: 29 Gender: M Height: 1.85 m Weight: 127.27 kg Allergies Allergy/AdvReac Type Severity Reaction Status Date / Time No Known Drug Allergies Allergy Unknown Unknown Verified 03/14/25 12:06 Home Medications ?Medication ?Instructions ?Recorded ?Confirmed ?Type rizatriptan 10 mg disintegrating See Rx Instructions PO .COMPLEX 11/09/23 03/10/25 Rx tablet #30 tabs omeprazole 40 mg capsule,delayed 40 mg PO DAILY #90 caps 08/08/24 03/10/25 Rx release dextroamphetamine-amphetamine ER 20 mg PO QAM #30 caps 03/10/25 03/10/25 Rx 20 mg 24hr capsule,extend release (Adderall XR) Patient hx anesthesia problems: none Family hx anesthesia problems: none Results Review: All pre-operative results and documents have been reviewed as part of the pre-operative evaluation. [facility] Past Medical History Medical History Tobacco use Right upper quadrant abdominal pain PEDRO PABLO (obstructive sleep apnea) Lateral epicondylitis of right elbow Right elbow pain IFG (impaired fasting glucose) Chronic GERD Depression Migraine, unspecified, not intractable, without status migrainosus Surgical History Surgical History H/O nasal septoplasty History of hand surgery History of mandibular surgery Family History Family History Mother Diabetes mellitus Hypertension Social History Social History Social History: caffeine use Smoking status: Current some day smoker Tobacco type: cigars Second hand tobacco smoke exposure: Yes Smoking end date: 07/27/09 Alcohol intake: current Drinks per week: 3 Substance use: never Substance use type: does not use Living arrangements: with family Additional living arrangements comments: Occupation/Education: occupation 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- [employer] Gender identity (if verbalized by the patient): Male Sexual Orientation (if Verbalized by the Patient): Straight or Heterosexual Spiritual care concerns: No Anes - Eval Final PreProcedure Day of Procedure 03/14/25 12:05 Patient weight: obese Heart: regular rate and rhythm Lungs: clear to auscultation Airway: Mallampati scale class II Neurological: alert and oriented Last oral intake: >/= 8 hours ASA classification: III Emergent: no Anesthetic plan: proceed Anesthesia type and monitoring: general GIVS and standard monitoring Results Review: All pre-operative results and documents have been reviewed as part of the pre-operative evaluation. Informed Consent: The patient's anesthetic plan and its attendant risks and benefits were discussed with the patient/family/POA. Questions were solicited and answers provided to the satisfaction of the patient/family/POA.
[2025-03-14 12:07] VITALS: BP 141/95; PULSE 58; RESP 18; TEMP 36.6; O2SAT 100
[2025-03-14] MEDS: LACTATED RINGERS 1,000 ML 150 ML IV CONT (12:16)
--- NOTE | 2025-03-14 12:29 | P.HP_ITS ---
History of Present Illness History of Present Illness Consent: Risks, benefits, and alternatives have been discussed and questions answered. Patient agrees to proceed with procedure. Chief complaint: Right upper quadrant pain, GERD Narrative: Steve Samayoa is a 29 year old male with gerd controlled on omeprazole, last egd 10 years ago Review of Systems Review of Systems: All systems reviewed & are unremarkable except as noted in HPI and below PMFSH Past Medical History Medical History Tobacco use Right upper quadrant abdominal pain PEDRO PABLO (obstructive sleep apnea) Lateral epicondylitis of right elbow Right elbow pain IFG (impaired fasting glucose) Chronic GERD Depression Migraine, unspecified, not intractable, without status migrainosus Surgical History Surgical History H/O nasal septoplasty History of hand surgery History of mandibular surgery Family History Family History Mother Diabetes mellitus Hypertension Social History Social History Social History: caffeine use Smoking status: Current some day smoker Tobacco type: cigars Second hand tobacco smoke exposure: Yes Smoking end date: 07/27/09 Alcohol intake: current Drinks per week: 3 Substance use: never Substance use type: does not use Living arrangements: with family Additional living arrangements comments: Occupation/Education: occupation Additional occupation/education comments: project consultant- [employer] Gender identity (if verbalized by the patient): Male Sexual Orientation (if Verbalized by the Patient): Straight or Heterosexual Spiritual care concerns: No Meds Home Medications and Allergies Home Medications ?Medication ?Instructions ?Recorded ?Confirmed ?Type rizatriptan 10 mg disintegrating See Rx Instructions P O .COMPLEX 11/09/23 03/10/25 Rx tablet #30 tabs omeprazole 40 mg capsule,delayed 40 mg PO DAILY #90 ca ps 08/08/24 03/10/25 Rx release dextroamphetamine-amphetamine ER 20 mg PO QAM #30 caps 03/10/25 03/10/25 Rx 20 mg 24hr capsule,extend release (Adderall XR) Allergies Allergy/AdvReac Type Severity Reaction Status Date / Time No Known Drug Allergies Allergy Unknown Unknown Verified 03/14/25 12:06 Vital Signs Vital Signs - 24 hr 03/14/25 12:07 Temperature 97.9 F Pulse Rate 58 L Respiratory Rate 18 Blood Pressure 141/95 H Pulse Oximetry 100 Oxygen Delivery Room Air Exam Const: General: comfortable and no acute distress HENMT: Face/Nose/Sinus: Normal nares present Eyes: General: appearance normal, both eyes and all related structures Neck: Neck: no JVD Resp: Auscultation: clear to auscultation bilaterally Cardio: Rate: regular rate Rhythm: regular rhythm GI: Inspection: non-distended GI Palp: Yes Soft to palpation Skin: General skin exam: normal color Neuro: General: gait normal Speech: normal speech Extrem: General: normal to inspection Psych: Mental Status: mental status grossly normal Assessment and Plan Assessment and plan (1) Chronic GERD: Code(s): K21.9 - Gastro-esophageal reflux disease without esophagitis Status: Acute Assessment and Plan: egd with bx doing will on ppi
--- NOTE | 2025-03-14 12:32 | S_PTH ---
PATIENT: Steve Samayoa LOC: [facility]#:[id number] AGE/SX: 29/M ROOM: RE03/14/[address]: Vitor Fish MD : 1995 BED: DIS: 03/14/2025 SPEC #: [id number] RECD: 03/14/25 12:42 STATUS: CRYSTAL REQ #: [id number] LETTY: 03/14/25 12:[address]: Vitor Fish DEPT: [facility] Surgical RECD BY: Frank Bell ENTERED: 03/14/25 12:43 SP TYPE: Surgical OTHR DR: Jalil Armas MD Tissues: A - Gastric Biopsy B - Esophageal Biopsy Procedures: Hematoxylin and Eosin Stain Gross and Microscopic Level 4
[2025-03-14 12:35] VITALS: BP 129/82; PULSE 82; RESP 17; O2SAT 94
[2025-03-14 12:45] VITALS: BP 133/85; PULSE 79; RESP 19; O2SAT 95
[2025-03-14 12:55] VITALS: BP 122/75; PULSE 82; RESP 18; O2SAT 95
== END 2025-03-14 13:10 | disposition home or self-care (01) ==
PROVIDERS: PCP Family Medicine; Referring Provider Nurse Practitioner Family; Visit Provider Internal Medicine Gastroenterology
PROC: 0DJ08ZZ Inspection of Upper Intestinal Tract, Via Natural or Artificial Opening Endoscopic (ICD-10-PCS; CPT 43239; principal; 2025-03-14 13:15)
DX: K21.00 Gastro-esophageal reflux disease with esophagitis, without bleeding (principal); K31.7 Polyp of stomach and duodenum; G47.33 Obstructive sleep apnea (adult) (pediatric); F32.A Depression, unspecified; F17.290 Nicotine dependence, other tobacco product, uncomplicated; E66.9 Obesity, unspecified; Z68.36 Body mass index [BMI] 36.0-36.9, adult; Z98.890 Other specified postprocedural states
CPT/HCPCS: 43239; 88305; J2704; J7120